=== PATIENT | female | born 1970 | race Caucasian/White ===

== ENCOUNTER 2024-01-14 07:52 | Outpatient (AMB) | payer OTHER, SELFPAY ==
--- NOTE | 2024-01-14 07:53 | A.OFFVIS_ITS ---
Vital Signs 01/14/24 08:05 Height 5 ft 7 in Weight 296 lb 11.875 oz BMI 46.5 BP 132/72 Blood Pressure Location Lt brachial Position Sitting Pulse 90 Pulse Source Pulse Oximeter Pulse Oximetry (%) 97 Oxygen Delivery Method Room Air Intake Visit Reasons: + MYRIAM Intake Note: Patient presents for + MYRIAM. Allergies Penicillins Allergy (Mild, Verified 01/14/24 07:57) Hives Medication List - Last Reconciled 01/14/24 by Diana Altamirano MD bupropion HCl XL 300 mg PO DAILY famotidine 20 mg PO BID omeprazole 20 mg PO DAILY rivaroxaban (Xarelto) 10 mg PO DAILY HPI Comments Details: Patient is a patient is a 53-year-old female on chronic low-dose Xarelto for history of DVTs who presents for evaluation of neck pain, elevated inflammatory markers and positive MYRIAM. Patient states that in November she woke up with a stiff neck which she attributed to maybe sleeping wrong. It was uncomfortable throughout the day and noticeable pain on movement however she continued without issue. The following day she noticed the pain persisted and this was now associated with some trouble swallowing. She continued throughout the day. Did not take any [id number] NSAIDs given that she is on blood thinners. On the 3rd day she states she could barely move her neck at all and she went to the urgent care at [facility] and then they sent her to the emergency room. In the emergency room she had a CT scan of neck soft tissue with contrast: Small retropharyngeal edema. No organized collection. The epiglottis is thin. The tonsils are not enlarged. There are no peritonsillar fluid collections. Prominent cervical lymph nodes including an 8 mm left level 2 lymph node. Salivary glands normal. Thyroid gland normal with no nodules. Mineralization anterior to the C2 vertebrae at the expected location of the longus coli muscle tendon. No suspicious osseous lesions ESR 45 CRP 25.7 MYRIAM 1:80 Homogenous She was diagnosed with calcific tendonitis of the longus coli muscle and give steroids PO which improved her pain. In the weeks after the episode she notes improvement in the pain though not comp lete resolution. She was recently seen by her primary who gave her another short course of prednisone which again helped but she noted the symptoms vaguely returned after finishing the script. She denies recurrent episodic monoarthritis involving the wrist, knees or ankles. She denies heel pain, history of inflammation in the eye, inflammatory type back pain, dactylitis. She denies prolonged morning stiffness to the hands, wrists. She denies not being able to open and close her hands in the mornings. No personal or family history of rheumatoid arthritis. She denies Raynaud's, oral/nasal ulcers, alopecia, photosensitivity or rash. Of note she is currently taking Xarelto 10 mg. In the past she had DVTs though these were superficial, but she has a family history of recurrent DVTs and PEs (her father). She was also placed on Lovenox during because of low protein C and S. she denies recurrent 2nd trimester loss. She only has 1 child and denies history of preeclampsia. 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 Surgical History (Updated 01/14/24 @ 08:23 by Ladnona Laguerre CMA) Hx of cholecystectomy Family History (Updated 01/14/24 @ 08:05 by ROSE Lorenz) Father Thyroid condition Acute arthritis Mother Acute arthritis Thyroid condition Social History (Updated 01/14/24 @ 08:02 by ROSE Lorenz) Household Members: Family Housing: House Alcohol intake: current Comment: Occassionally Patient Tobacco Use Status: Never used Tobacco Review of Systems Const Details: Review of Systems Constitutional: Denies fever, chills, weight loss ENT: Denies vision changes, eye pain or eye redness, dental caries, dry mouth GI: Denies nausea, vomiting, diarrhea, abdominal pain, change in BM Pulm: Denies SOB, CLAYTON, hemoptysis, wheezing Cards: Denies chest pain, palpitations Skin: Denies Raynaud's, rash, nail changes, photosensitivity, SLIP MIXER: Denies headaches, weakness, paresthesias, recurrent falls MSK: Neck pain All other systems reviewed and are unremarkable except noted above Physical Exam Vital Signs: Last Vital Signs Pulse 90 01/14/24 08:05 BP 132/72 01/14/24 08:05 Pulse Ox 97 01/14/24 08:05 Oxygen Delivery Method Room Air 01/14/24 08:05 BMI result Body Mass Index 46.5 Const Other: Physical Examination Patient well appearing and in no apparent painful distress Able to rise from chair without support. ?Gait normal. Constitutional: ?Mucous membranes pink and moist patient alert and cooperative HEENT: ?Conjunctiva and sclera clear. ?Pupils equal round and reactive to light. ?No lymphadenopathy. ?Normal dentition. Resp: ?Normal respiratory effort and able to speak in complete sentences. ?Clear to auscultation bilaterally. ?No crackles, rales, rhonchi, wheezes heard. Cards: ?Regular rate and rhythm. ?S1 and S2 heard no murmurs. ?Radial pulses intact bilaterally MSK: ?No deformity, swelling, abnormalities noted to bilateral hands. ?No evidence of synovitis. ?Able to move all joints with full range of motion, without limitation. Normal Cristino's test. No enthesitis. Skin: Telangiectasias noted over bilateral maxilla and nasal bridge. Results Reviewed Results Reviewed: Results and imaging reviewed. CT scan of neck soft tissue with contrast 11/15/23: Small retropharyngeal edema. No organized collection. The epiglottis is thin. The tonsils are not enlarged. There are no peritonsillar fluid collections. Prominent cervical lymph nodes including an 8 mm left level 2 lymph node. Salivary glands normal. Thyroid gland normal with no nodules. Mineralization anterior to the C2 vertebrae at the expected location of the longus coli muscle tendon. No suspicious osseous lesions ESR 45 CRP 25.7 MYRIAM 1:80 Homogenous Assessment & Plan Assessment & Plan (1) Calcific tendonitis: Code(s): M65.20 - Calcific tendinitis, unspecified site Category: Medical Plan: #Calcific Tendonitis of the longus coli muscle Patient with calcific tendinitis of the longus colli muscle. This is a rare presentation. Review of the literature showed a case series out of [place] and a case report out of [place]. Upon review of the literature calcific tendinitis of the longus coli muscle is a rare condition. Normally associated with elevated ESR and CRP. It is also associated with retropharyngeal edema and inflammation which can lead to difficulties in swallowing. The treatment is nonsteroidal anti-inflammatory medication. This does not seem to be a recurrent disease. I contacted the radiology department at [facility] and spoke with the consulting radiologist Dr. Velasco. ([phone]). I discussed with him the radiology findings and also asked if there was any possibility for crowned dens syndrome (any calcification involving the odontoid process) or pannus. He reviewed the images and agreed with the findings stating that there is calcification limited to the longus coli muscle and no evidence of odontoid process involvement or evidence of pannus. Given this finding and literature review stating that this is a self-limited disease recommending Tylenol for pain management (1000 mg twice a day) and physical therapy for her neck. If symptoms should become recurrent I would consider using colchicine since this has been shown to be effective in reducing flares of CPPD arthropathy. Her history and exam also are not consistent with CPPD, rheumatoid arthritis, lupus or ankylosing spondylitis. Low suspicion for these autoimmune diseases at this time. Tapan A, Lito B, Sydney E, Edmar W, Clarence A. Longus colli tendinitis. A review of literature and case series. SICOT J. 2017;3:48. doi: 10.1051/sicotj/[id number]. Epub 2016Oct 08. PMID: [id number]; PMCID: [id number]. Baudilio GOULD, Parviz C, Abram J, Estevan A. Acute calcific tendinitis of the longus colli: A case report. Radiol Case Rep. 2023Jul 24;19(7):2730-2263. doi: [id number]/j.[id number]. PMID: 58790623; PMCID: [id number]. (2) Positive MYRIAM (antinuclear antibody): Code(s): R76.8 - Other specified abnormal immunological findings in serum Plan: #Positive MYRIAM The presence of antinuclear antibodies (MYRIAM) is mainly associated with connective tissue diseases (CTD). ?However, their presence is found in healthy people especially in women and patients >65. ?In healthy individuals, the frequency of MYRIAM has been shown to be 31.7% of individuals at 1:40 serum dilution, 13.3% at 1:80, 5.0% at 1:160, and 3.3% at 1:320 (2). Some drugs and xenobiotics are also important for the development of MYRIAM (hydralazine, hydrochlorothiazide, minocycline, terbinafine, ciprofloxacin, furosemide, omeprazole). Moreover, the deficiency of vitamin D in the body of patients correlates with occurrence of these antibodies (1). At this time there is low suspicion for a connective tissue disease. ? 1. Henny-Wiley?debbie Lama, Noah Mitchell, Jairo Alcocer. Antinuclear antibodies in healthy people and non-rheumatic diseases - diagnostic and clinical implic ations. Reumatologia. 2018;56(4):243-248. doi: 10.5114/reum.2018.39653. Epub 2017Dec 11. PMID: 50384233; PMCID: [id number]. 2. Avni EM, Gary TE, Natalie JS, Nimco B, Nadir R, uSrendra MJ, Wilber T, Guerline JA, Alexandra JR, Latisha RG, Tano RN, Colt JS, Belgica NF, James RJ, Elva Y, Louis A, Jaden MR, Nelson OLEARY. Range of antinuclear antibodies in healthy individuals. Arthritis Rheum. 1996;40(9):1601-11. doi: 10.1002/art.1844447016. PMID: 3766876. (3) Recurrent deep vein thrombosis (DVT): Code(s): I82.409 - Acute embolism and thrombosis of unspecified deep veins of unspecified lower extremity Plan: #Recurrent DVT Patient with history of recurrent DVT currently on low-dose Xarelto. Given her strong family history of clotting we will check for antiphospholipid antibodies. Plan I spent 60 minutes reviewing the record and labs, seeing the patient, discussing the treatment plan, contacting other providers to discuss results and documenting in the medical record Orders: Orders Beta-2 Glycoprotein Antibody Today I82.409 - Acute embolism and thrombosis of unspecified deep veins of unspecified lower extremity Erythrocyte Sedimentation Rate Today M65.20 - Calcific tendinitis, unspecified site Cardiolipin Antibodies Today I82.409 - Acute embolism and thrombosis of unspecified deep veins of unspecified lower extremity Lupus Anticoagulant Panel Today I82.409 - Acute embolism and thrombosis of unspecified deep veins of unspecified lower extremity PT Evaluation and Treatment Today M65.20 - Calcific tendinitis, unspecified site C Reactive Protein Today M65.20 - Calcific tendinitis, unspecified site Coding Level of Care Code New Pt Level 5 (79992) Diagnoses Calcific tendonitis M65.20 Positive MYRIAM (antinuclear antibody) R76.8 Recurrent deep vein thrombosis (DVT) I82.409
[2024-01-14 08:05] VITALS: BP 132/72; PULSE 90; O2SAT 97; BMI 46.5
== END 2024-01-14 08:50 | disposition home or self-care (01) ==
PROVIDERS: PCP Physician Assistant; Visit Provider Student in an Organized Health Care Education/Training Program
DX: M65.20 Calcific tendinitis, unspecified site (principal); R76.8 Other specified abnormal immunological findings in serum; I82.409 Acute embolism and thrombosis of unspecified deep veins of unspecified lower extremity
CPT/HCPCS: 99205

== ENCOUNTER 2024-01-14 07:52 | Outpatient (REF) | payer OTHER, SELFPAY ==
[2024-01-14 10:14] LABS: C Reactive Protein 2.98 mg/dL (< or = 0.50)
[2024-01-14 10:44] LABS: Erythrocyte Sedimentation Rate 16 MM/HR (0-20)
[2024-01-19 13:13] LABS: DRVVT Confirmation Negative (Negative); Hexagonal Phase Neutralization Negative (Negative); PTT (LAC) Screen 42 sec (<=40)
[2024-01-19 16:29] LABS: Beta-2 Glycoprotein IgA 5.3 U/mL (<20.0); Beta-2 Glycoprotein IgG <2.0 U/mL (<20.0); Beta-2 Glycoprotein IgM <2.0 U/mL (<20.0)
[2024-01-20 16:47] LABS: Cardiolipin IgG Ab <2.0 GPL-U/mL; Cardiolipin IgM Ab <2.0 MPL-U/mL
== END 2024-01-14 07:53 | disposition home or self-care (01) ==
LOC: HO.LAB 07:52
PROVIDERS: PCP Physician Assistant; Visit Provider Student in an Organized Health Care Education/Training Program
DX: M65.20 Calcific tendinitis, unspecified site (principal); I82.409 Acute embolism and thrombosis of unspecified deep veins of unspecified lower extremity; R76.0 Raised antibody titer
CPT/HCPCS: 36415; 85597; 85598; 85613; 85652; 85730; 86140; 86146; 86147

== ENCOUNTER 2024-01-28 08:53 | Outpatient (AMB) | payer OTHER, SELFPAY ==
[2024-01-28 08:56] VITALS: BP 128/72; PULSE 94; O2SAT 98; BMI 45.6
--- NOTE | 2024-01-28 08:56 | A.OFFVIS_ITS ---
Vital Signs 01/28/24 08:56 Height 5 ft 7 in Weight 291 lb 3.69 oz BMI 45.6 BP 128/72 Blood Pressure Location Lt brachial Position Sitting Pulse 94 Pulse Source Pulse Oximeter Pulse Oximetry (%) 98 Oxygen Delivery Method Room Air Intake Visit Reasons: f/u labs and neck pain/cm Intake Note: Patient presents today for follow up on labs and neck pain, last seen in the office on 01/14/[address] Altamirano. Allergies Penicillins Allergy (Mild, Verified 01/28/24 09:02) Hives HPI Comments Details: Patient is a patient is a 53-year-old female on chronic low-dose Xarelto for history of DVTs who presents for follow-up of calcific tendinitis to her longus coli muscle in the neck. Interval History: Last seen 01/14/2024 with me. At that time she was establishing care for neck pain and a CT which showed calcific tendonitis of the longus coli muscle in the neck. She had reported that her pain was improved on prednisone and slowly recovering. Today she continues to report improvement with no return of her neck pain Rheumatologic History: Patient initially presented 01/14/2024 with a diagnosis of calcific tendinitis of the longus coli muscle to her neck after a 1 week period of progressively worsening neck pain. She had CT of her neck in the ED at [facility] which showed CT scan of neck soft tissue with contrast: Small retropharyngeal edema. No organized collection. The epiglottis is thin. The tonsils are not enlarged. There are no peritonsillar fluid collections. Prominent cervical lymph nodes including an 8 mm left level 2 lymph node. Salivary glands normal. Thyroid gland normal with no nodules. Mineralization anterior to the C2 vertebrae at the expected location of the longus coli muscle tendon. No suspicious osseous lesions ESR 45 CRP 25.7 MYRIAM 1:80 Homogenous I contacted the radiologist at [facility] and discussed the images. There was no evidence of pannus or of crowned dens syndrome. Recommendations based on literature were for Tylenol and that this is a self- limited non recurring disease. Of note she is on Xarelto 10 mg. In the past she had DVTs though these were superficial, but she has a family history of recurrent DVTs and PEs (her fat her). She was also placed on Lovenox during because of low protein C and S. labs for antiphospholipid were negative. Current Rheumatology Medication(s): - [facility] Medical History (Updated 01/28/24 @ 09:01 by Ladonna Laguerre CMA) Calcific tendonitis delivery delivered Anemia Complex ovarian cyst Dysmenorrhea Surgical History (Updated 01/14/24 @ 08:23 by Ladonna Laguerre CMA) Hx of cholecystectomy Family History (Updated 01/14/24 @ 08:05 by ROSE Lorenz) Father Thyroid condition Acute arthritis Mother Acute arthritis Thyroid condition Social History (Updated 01/14/24 @ 08:02 by ROSE Lorenz) Household Members: Family Housing: House Alcohol intake: current Comment: Occassionally Patient Tobacco Use Status: Never used Tobacco Review of Systems Const Details: Review of Systems Constitutional: Denies fever, chills, weight loss ENT: Denies vision changes, eye pain or eye redness, dental caries, dry mouth GI: Denies nausea, vomiting, diarrhea, abdominal pain, change in BM Pulm: Denies SOB, CLAYTON, hemoptysis, wheezing Cards: Denies chest pain, palpitations Skin: Denies Raynaud's, rash, nail changes, photosensitivity, PAVER OPERATOR: Denies headaches, weakness, paresthesias, recurrent falls MSK: as per HPI All other systems reviewed and are unremarkable except noted above Physical Exam Vital Signs: Last Vital Signs Pulse 94 01/28/24 08:56 BP 128/72 01/28/24 08:56 Pulse Ox 98 01/28/24 08:56 Oxygen Delivery Method Room Air 01/28/24 08:56 BMI result Body Mass Index 45.6 Const Other: Physical Examination Patient well appearing and in no apparent painful distress Able to rise from chair without support. ?Gait normal. Constitutional Mucous membranes pink and moist patient alert and cooperative HEENT Conjunctiva and sclera clear. ?Pupils equal round and reactive to light. ?No lymphadenopathy. ?Normal dentition. Respiratory System Normal respiratory effort and able to speak in complete sentences. ?Clear to auscultation bilaterally. ?No crackles, rales, rhonchi, wheezes heard. Cardiac System Regular rate and rhythm. ?S1 and S2 heard no murmurs. ?Radial pulses intact bilaterally MSK No deformity, swelling, abnormalities noted to bilateral hands. ?No evidence of synovitis. ?Able to move all joints with full range of motion, without limitation. Results Reviewed Results Reviewed: Laboratory Tests 01/14/24 09:18 ESR 16 Lupus Anticoag Interp see note C-Reactive Protein 2.98 H Beta-2-GPI IgG Ab <2.0 Beta-2-GPI IgA Ab 5.3 Beta-2-GPI IgM Ab <2.0 Anti-Cardiolipin IgG Ab <2.0 Anti-Cardiolipin IgM Ab <2.0 Assessment & Plan Assessment & Plan (1) Calcific tendonitis: Code(s): M65.20 - Calcific tendinitis, unspecified site Category: Medical Plan: #Calcific Tendonitis of the longus coli muscle Patient with calcific tendinitis of the longus colli muscle. Review of the literature showed a case series out of [place] and a case report out of [facility]. Upon review of the literature calcific tendinitis of the longus coli muscle is a rare condition. Normally associated with elevated ESR and CRP. It is also associated with retropharyngeal edema and inflammation which can lead to difficulties in swallowing. The treatment is nonsteroidal anti-inflammatory medication. This does not seem to be a recurrent disease. Low suspicion for these autoimmune diseases at this time. Tapan A, Lito B, El-Kalpesh E, Edmar W, Clarence A. Longus colli tendinitis. A review of literature and case series. SICOT J. 2017;3:48. doi: 10.1051/sicotj/[id number]. Epub 2016Oct 08. PMID: [id number]; PMCID: [id number]. Baudilio GOULD, Parviz C, Abram J, Estevan A. Acute calcific tendinitis of the longus colli: A case report. Radiol Case Rep. 2023Jul 24;19(7):0731-1297. doi: 10.1016/j.[id number]..027. PMID: [id number]; PMCID: [id number]. (2) Positive MYRIAM (antinuclear antibody): Code(s): R76.8 - Other specified abnormal immunological findings in serum Plan: #Positive MYRIAM The presence of antinuclear antibodies (MYRIAM) is mainly associated with connective tissue diseases (CTD). ?However, their presence is found in healthy people especially in women and patients >65. ?In healthy individuals, the frequency of MYRIAM has been shown to be 31.7% of individuals at 1:40 serum dilution, 13.3% at 1:80, 5.0% at 1:160, and 3.3% at 1:320 (2). Some drugs and xenobiotics are also important for the development of MYRIAM (hydralazine, hydrochlorothiazide, minocycline, terbinafine, ciprofloxacin, furosemide, omeprazole). Moreover, the deficiency of vitamin D in the body of patients correlates with occurrence of these antibodies (1). At this time there is low suspicion for a connective tissue disease. ? 1. Candice?debbie Lama, Noah Mitchell, Jairo Alcocer. Antinuclear antibodies in healthy people and non-rheumatic diseases - diagnostic and clinical implications. Reumatologia. 2018;56(4):243-248. doi: 10.5114/reum.2018.21308. Epub 2017Dec 11. PMID: [id number]; PMCID: [id number]. 2. Holly EM, Gary TE, Natalie JS, Nimco B, Nadir R, Surendra MJ, Wilber T, Guerline JA, Alexandra JR, Latisha RG, Tano RN, Colt JS, Belgica NF, James RJ, Elva Y, Louis A, Jaden MR, Nelson OLEARY. Range of antinuclear antibodies in healthy individuals. Arthritis Rheum. 1996;40(9):1601-11. doi: 10.1002/art.3891671049. PMID: 4502218. (3) Recurrent deep vein thrombosis (DVT): Code(s): I82.409 - Acute embolism and thrombosis of unspecified deep veins of unspecified lower extremity Plan: #Recurrent DVT Patient with history of recurrent DVT currently on low-dose Xarelto. No evidence of antiphospholipid antibodies. Plan I spent 15 minutes reviewing the record and labs, seeing the patient, discussing the treatment plan, contacting other providers to discuss results and documenting in the medical record Coding Level of Care Code Est Pt Level 2 (27774) Diagnoses Calcific tendonitis M65.20 Positive MYRIAM (antinuclear antibody) R76.8 Recurrent deep vein thrombosis (DVT) I82.409
== END 2024-01-28 09:27 | disposition home or self-care (01) ==
PROVIDERS: PCP Physician Assistant; Visit Provider Student in an Organized Health Care Education/Training Program
DX: M65.20 Calcific tendinitis, unspecified site (principal); R76.8 Other specified abnormal immunological findings in serum; I82.409 Acute embolism and thrombosis of unspecified deep veins of unspecified lower extremity
CPT/HCPCS: 99212